=== PATIENT | male | born 1995 | race Asian ===

== ENCOUNTER 2017-03-17 22:13 | Emergency (ER) | payer OTHER ==
[~2017-03-17] VITALS: Ht 172.7 cm; Wt 74.7 kg
[2017-03-17 22:16] VITALS: TEMP 36.9; Ht 172.7 cm; Wt 74.7 kg
[2017-03-17] MEDS ORDERED: DiphenhydrAMINE HCL 50 MG/ML VIAL IV STA (22:33)
[2017-03-17] MEDS ORDERED: RANITIDINE HCL 50 MG/100 ML D5W IV STA (22:33)
[2017-03-17] MEDS ORDERED: METHYLPREDNISOLONE 125 MG VIAL IV STA (22:33)
[2017-03-17] MEDS ORDERED: SODIUM CHLORIDE 0.9% 1000ML 1,000 ML IV STA (22:33)
[2017-03-17 22:36] VITALS: O2SAT 95
[2017-03-17] MEDS ORDERED: ADVIN25/60 INH (22:40)
[2017-03-17] MEDS ORDERED: VNTHFA/IN INH (22:40)
[2017-03-17] MEDS ORDERED: METH4PAK PO (22:44)
--- NOTE | 2017-03-17 22:47 | EMERGENCY ROOM VISIT NOTE ---
ED Visit Note First contact with patient: 22:21 CHIEF COMPLAINT: Allergic reaction HISTORY OF PRESENT ILLNESS: This 21-year-old male patient presents to the emergency department approximately 4 hours after they developed sudden onset of throat and mouth itchiness, nausea, abdominal pain, hives, and itching. The patient states he has a known allergy to peanuts. He states his allergy normally causes abdominal pain associated with nausea and throat itchiness. The patient states he ate a donut approximately 4 hours ago, and believes it may have had nuts in it. He immediately began experiencing mouth and throat itchiness, and shortly after began experiencing abdominal pain and nausea. The patient states after this, he began experiencing hives. He did take 25 mg of Benadryl and used his albuterol inhaler approximately one and a half hours ago. He states that the symptoms did help mildly, but nothing has helped hives. The hives are new, and he has never experienced them before with his reaction. The patient does not have swelling of the face and lips or a sensation of swelling in the throat. The patient has not had shortness of breath, but did have mild wheezing which improved with albuterol. Has had previous reactions similar to this before. REVIEW OF SYSTEMS: A 10 system review of systems was performed with positives and pertinent negatives listed in the history of present illness. All other systems were reviewed and are negative. ALLERGIES: Peanuts MEDICATIONS: Advair, albuterol PMH: Asthma SOCIAL HISTORY: Patient is a [employer] student. He lives locally. He denies drug, tobacco use. The patient does admit to occasional alcohol use. PHYSICAL EXAM:VITALS: Vitals are noted on the nurse's note and reviewed by myself. Vital signs stable. GENERAL: This is a 21-year-old male, in no acute distress, nondiaphoretic, well- developed well-nourished. THROAT: No pharyngeal edema or injection, no exudates or tonsillar hypertrophy. Airway patent. LUNGS: Very mild wheezing throughout. Otherwise, lungs were clear to auscultation and breath sounds equal without rales or rhonchi. EYES: PERRLA, EOMI, no discharge or injection. NEUROLOGICAL: Alert and oriented to person, place, and time. Normal sensation to light and sharp touch. HEART: Regular rate without murmurs, ectopy , gallops, or rubs. SKIN: Urticaria noted on patient's chest, neck, and back. The lips are not swollen. There is no periorbital swelling. EMERGENCY DEPARTMENT COURSE: I examined the patient. The patient was given 1 L normal saline solution, 25 mg Benadryl, 50 mg of Zantac, and 125 mg IV solu- medrol. [place] much improved and was discharged in stable condition with the instructions noted below. DIFFERENTIAL DIAGNOSIS: Urticaria, allergic reaction, anaphylaxis, and others DIAGNOSIS: Allergic reaction, urticaria DISCHARGE INSTRUCTIONS & TREATMENT: You have been treated in the Emergency Department for an Allergic Reaction. You have been treated and monitored in the Emergency Department appropriately. You should take Benadryl (diphenhydramine) 25-50 mg orally every 4-6 hours for the next 5-7 days. This medication is uyhl-aar-pkscsvt and you will NOT need a prescription to purchase this at your local pharmacy. You should continue taking the Benadryl for the COMPLETION of the 5-7 days. This is to prevent a rebound allergic reaction in the event that allergens are still present in your system. You should take Zantac (ranitidine) 150 mg orally once daily for the next 7 days. This medication is hkov-lwr-ssmxukb and you will NOT need a prescription to purchase this at your local pharmacy. You should continue taking the Zantac for the COMPLETION of the 7 days. This is to prevent a rebound allergic reaction in the event that allergens are still present in your system. You have been prescribed a Medrol Dosepak. Take this medication as prescribed. You should take the COMPLETE 6-day course of this medication. This is an anti- inflammatory medicine that will help to minimize your symptoms. You have been prescribed an EpiPen to be used in the case of an Emergency. Please read the packet you have been given and ask your pharmacist for instructions on proper administration. If you begin to experience the symptoms that brought you to the Emergency Department today, you should give yourself the injection and then report IMMEDIATELY to the Emergency Department for further evaluation and treatment. As with every Emergency Department visit, you should follow-up with your primary care provider in 2-3 days for reevaluation. Return to the Emergency Department if your current symptoms worsen despite treatment course outlined above, or if you develop any of the following symptoms : wheezing, tongue or face swelling, tightness in your throat, shortness of breath, or fainting. Current/Historical Medications Scheduled Methylprednisolone (Medrol Dosepak), 0 PO DAILY Scheduled PRN Albuterol Hfa (Ventolin Hfa), 2-4 PUFFS INH Q6H PRN for SOB/Wheezing Fluticasone Prop/Salmeterol (Advair Diskus 250/50 60 Dose), 1 PUFF INH BID PRN for ASTHMA Allergies Coded Allergies: NUTS (Unverified Allergy, Severe, HIVES, SWELLING, ITCHY THROAT, STOMACH ACHE, 03/17/17) Nut Tree (Unverified Allergy, Severe, HIVES, SWELLING, ITCHY THROAT, STOMACH ACHE, 03/17/17) Peanut (Unverified Allergy, Severe, HIVES, SWELLING, ITCHY THROAT, STOMACH ACHE, 03/17/17) Peanut-containing Drug Products (Unverified Allergy, Severe, HIVES, SWELLING, ITCHY THROAT, STOMACH ACHE, 03/17/17) Vital Signs Date Time Temp Pulse Resp B/P (MAP) Pulse Ox O2 Delivery O2 Flow Rate FiO2 03/17/17 23:21 71 18 136/67 99 Room Air 03/17/17 22:46 64 16 99 Room Air 03/17/17 22:36 95 Room Air 03/17/17 22:31 98 Room Air 03/17/17 22:29 65 03/17/17 22:16 36.9 62 18 159/76 98 Room Air Medications Administered Medications (Trade) Dose Ordered Sig/Bartolome Route Start Time Stop Time Status Last Admin Dose Admin Sodium Chloride 1,000 ml @ 999 mls/hr Q1H1M STAT IV 03/17/17 22:33 03/17/17 23:33 03/17/17 22:41 999 MLS/HR Diphenhydramine HCl (Benadryl Inj) 25 mg NOW STAT IV 03/17/17 22:33 03/17/17 22:36 DC 03/17/17 22:41 25 MG Ranitidine HCl (zANTac IV) 50 mg NOW STAT IV 03/17/17 22:33 03/17/17 22:36 DC 03/17/17 22:42 50 MG Methylprednisolone Sodium Succinate (Solu-Medrol IV) 125 mg NOW STAT IV 03/17/17 22:33 03/17/17 22:36 DC 03/17/17 22:41 125 MG Departure Information Impression Primary Impression: Allergic reaction Additional Impression: Urticaria Dispostion Home / Self-Care Condition GOOD Prescriptions Methylprednisolone (MEDROL DOSEPAK) 4 Mg Yariel 0 PO DAILY, #1 PKT Prov: Zuly Larios PA-C 03/17/17 Referrals No Doctor, Assigned (PCP) [facility] Patient Instructions ED Allergic React Food, My [facility] Additional Instructions You have been treated in the Emergency Department for an Allergic Reaction. You have been treated and monitored in the Emergency Department appropriately. You should take Benadryl (diphenhydramine) 25-50 mg orally every 4-6 hours for the next 5-7 days. This medication is coan-mdb-ghzupfl and you will NOT need a prescription to purchase this at your local pharmacy. You should continue taking the Benadryl for the COMPLETION of the 5-7 days. This is to prevent a rebound allergic reaction in the event that allergens are still present in your system. You should take Zantac (ranitidine) 150 mg orally once daily for the next 7 days. This medication is duji-mvm-cedqcwj and you will NOT need a prescription to purchase this at your local pharmacy. You should continue taking the Zantac for the COMPLETION of the 7 days. This is to prevent a rebound allergic reaction in the event that allergens are still present in your system. You have been prescribed a Medrol Dosepak. Take this medication as prescribed. You should take the COMPLETE 6-day course of this medication. This is an anti- inflammatory medicine that will help to minimize your symptoms. You have been prescribed an EpiPen to be used in the case of an Emergency. Please read the packet you have been given and ask your pharmacist for instructions on proper administration. If you begin to experience the symptoms that brought you to the Emergency Department today, you should give yourself the injection and then report IMMEDIATELY to the Emergency Department for further evaluation and treatment. As with every Emergency Department visit, you should follow-up with your primary care provider in 2-3 days for reevaluation. Return to the Emergency Department if your current symptoms worsen despite treatment course outlined above, or if you develop any of the following symptoms : wheezing, tongue or face swelling, tightness in your throat, shortness of breath, or fainting. Problem Qualifiers Primary Impression: Allergic reaction Encounter type: initial encounter Qualified Codes: T78.40XA - Allergy, unspecified, initial encounter
[2017-03-17] MEDS ORDERED: EPINEPHRINE ADULT AUTO-INJECT 0.3 MG SYR IM STA (23:29)
[2017-03-17 23:41] VITALS: BP 127/75; PULSE 67; O2SAT 100
== END 2017-03-17 23:42 | disposition home or self-care (01) ==
LOC: C.EDB 22:14 → C.EDC 23:42
DX: T78.40XA Allergy, unspecified, initial encounter (principal); X58.XXXA Exposure to other specified factors, initial encounter; L50.9 Urticaria, unspecified; J45.909 Unspecified asthma, uncomplicated